=== PATIENT | male | born 1975 | race Caucasian/White ===

== ENCOUNTER 2019-05-21 09:19 | Outpatient (CLI) | payer BC, SELFPAY ==
--- NOTE | 2019-05-21 09:24 | MR_ITS ---
WS: [id number] MRI HEAD WITH CONTRAST TECHNIQUE: Sagittal T1, T2 axial, T2 axial FLAIR, axial susceptibility weighted imaging, axial diffus ion weighted images, and coronal T2 images were obtained. Pre and post-T1 axial and post T1 coronal i mages. ADC and FSPGR images. CLINICAL INFORMATION: NUMBNESS OF FACE;HEADACHE COMPARISON: CTA 12 18,019 FINDINGS: No evidence of restricted diffusion to suggest acute ischemia. Ventricular system and basal cisterns are patent. Mild patchy supratentorial white matter changes in the subcortical and periventricular di stribution nonspecific in a patient this age but can be seen with hypertension, diabetes, and migrain e headaches. Normal posterior fossa. Normal vascular flow voids at the skull base. No extra-axial fluid collection s. Mild mucosal thickening in the ethmoid air cells. Partial opacification left maxillary sinus. Mastoid air cells are well aerated. No significant parenchymal volume loss. Normal optic chiasm and p ituitary infundibulum. Temporal lobes and hippocampal formations are normal in appearance. No abnormal intercranial enhancement. Normal visualized dural venous sinuses. MR/MR head wo/w con [id number] IMPRESSION: 1. No evidence of restricted diffusion to suggest acute ischemia. 2. Mild supratentorial white matter changes nonspecific in a patient this age but can be seen with hypertension, diabetes, and migraine headaches. No signifi cant parenchymal volume loss. 3. No abnormal gadolinium enhancement. 4. Left maxillary sinusitis. Mastoid air cells are well aerated.
== END 2019-05-21 09:20 | disposition home or self-care (01) ==
LOC: RADSHAW 09:22
PROVIDERS: Family Provider Family Medicine; PCP Family Medicine; Visit Provider Family Medicine
DX: J32.0 Chronic maxillary sinusitis (principal); R20.0 Anesthesia of skin; R51 Headache
CPT/HCPCS: 70553; A9579

== ENCOUNTER 2019-11-02 22:25 | Observation (INO) | payer BC, SELFPAY ==
[2019-11-02 22:57] VITALS: BP 142/89; PULSE 77; RESP 18; TEMP 37.3; O2SAT 96; BMI 31.8
[2019-11-03] VITALS (20 sets, daily range): BP systolic 97–151; BP diastolic 62–99; PULSE 66–101; RESP 10–21; TEMP 36.1–36.8; O2SAT 94–100
--- NOTE | 2019-11-03 | SCC_ITS ---
Procedure Done: Cystoscopy, right retrograde ureteropyelogram 43.3 seconds of fluoroscopic guidance, for a cumulative dose of 12.71 mGy, was provided to Dr. Nava by the radiology department. C-arm images of the abdomen were saved for the patient's permanent record. MTDD
[2019-11-03 00:34] LABS: Basophils # 0.1 10^3/uL (0.0-0.1); Basophils % 0.7 %; Eosinophils % 0.1 %; Hematocrit 46.2 % (42.0-52.0); Hemoglobin 15.9 g/dL (11.7-16.6); Lymphocytes # 1.1 10^3/uL (0.8-4.8); Mean Corpuscular HGB Conc 34.4 g/dL (30.0-36.0); Mean Corpuscular Hemoglobin 30.7 pg (28.0-34.0); Mean Corpuscular Volume 89.2 fL (80-94); Monocytes # 0.9 10^3/uL (0.2-0.9); Monocytes % 7.7 %; Neutrophils # 9.8 10^3/uL (1.8-7.7); Neutrophils % 82.2 %; Nucleated Red Blood Cells % 0 %; Platelet Count 225 10^3/cmm (130-400); Red Blood Count 5.18 10^6/uL (4.1-5.3); Red Cell Distribution Width 12.3 % (12.1-15.1); White Blood Count 11.9 10^3/uL (4.0-10.0)
--- NOTE | 2019-11-03 00:38 | CTR_ITS ---
PROCEDURE INFORMATION: Exam: CT Abdomen And Pelvis Without Contrast Exam date and time: 11/03/2019 12:47 AM Age: 44 years old Clinical indication: Abdominal pain; Right; Patient HX: C/O intermittent R flank pain x 2 days - HX of stones TECHNIQUE: Imaging protocol: Computed tomography of the abdomen and pelvis without contrast. Radiation optimization: All CT scans at this facility use at least one of these dose optimization techniques: automated exposure control; mA and/or kV adjustment per patient size (includes targeted exams where dose is matched to clinical indication); or iterative reconstruction. COMPARISON: No relevant prior studies available. RADIATION DOSE METRICS: Total DLP (mGy-cm): 1886.54 FINDINGS: Limitations: Examinations performed without intravenous contrast have limited ability to detect many conditions. Lungs: Visualized portions of the lung bases are clear. Liver: Diffuse fatty infiltration of the liver. Gallbladder and bile ducts: Unremarkable. Pancreas: Unremarkable. Spleen: Unremarkable. Adrenals: Unremarkable. Kidneys and ureters: There is a 0.8 cm stone in the right lower ureter (series 2, image 158). Moderate right hydronephrosis. Moderate inflammatory change of the right perinephric fat. The left kidney is unremarkable. Stomach and bowel: No bowel obstruction identified. No diverticulitis identified. Appendix: A normal-appearing appendix is seen in the right lower quadrant. Intraperitoneal space: No free intraperitoneal air identified. No free intraperitoneal fluid identified. Vasculature: No abdominal aortic aneurysm. Lymph nodes: Unremarkable. Bladder: Unremarkable as visualized. Reproductive: Unremarkable as visualized. Bones/joints: No emergent findings identified. Soft tissues: Unremarkable. CT/CT kidney stone [id number] IMPRESSION: 1. There is a 0.8 cm stone in the right lower ureter. Moderate right hydronephrosis. 2. Fatty liver. Radiation Dose CTDIVOL = (mGy): DLP = 1886.54 (mGy-cm)
[2019-11-03] MEDS: HYDROmorphone 1 mg/mL INJ 1 mL IVP ×3 (00:51→04:12)
[2019-11-03] MEDS: ondansetron 2 mg/ML SDV 2 mL 4 MG IVP ×2 (00:52→02:05)
[2019-11-03 00:53] LABS: Alanine Aminotransferase 39 U/L (0-41); Albumin Level 4.7 g/dL (3.5-5.2); Alkaline Phosphatase 60 IU/L (40-130); Anion Gap 17.1 (5-19); Aspartate Amino Transferase 28 U/L (0-40); Blood Urea Nitrogen 14 mg/dL (6-20); C Reactive Protein 4.6 mg/L (0.0-4.9); Calcium 9.6 mg/dL (8.5-10.5); Carbon Dioxide 27 mmol/L (22-29); Chloride 99 mmol/L (98-107); Globulin 2.9 g/dL (1.3-4.6); Glomerular Filtration Rate 50.8 mL/min (90-130); Glucose 129 mg/dL (65-115); Lipase 36 U/L (13-60); Osmolality Calculated 286 mOsm/kg (285-295); Potassium 4.1 mmol/L (3.5-5.1); Sodium 139 mmol/L (136-145); Total Bilirubin 0.5 mg/dL (0.15-1.2); Total Protein 7.6 g/dL (6.6-8.7)
[2019-11-03] MEDS: sodium chloride 0.9% 1,000 ML 999 ML IV (00:55)
[2019-11-03 02:15] LABS: Add Urine Microscopic? YES; Bilirubin Urine 1+ (NEGATIVE); Blood Urine 3+ (Negative); Glucose Urine UA Norm (Normal); Ketones Urine Negative (Negative); Leukocyte Esterase Urine Negative (Negative); Nitrate Urine Negative (Negative); Protein Urine Neg (Negative); Urine Appearance Clear (CLEAR); Urine Color Yellow (Yellow); Urobilinogen Urine Norm (Negative); pH Urine 5 (5-7)
[2019-11-03 02:17] LABS: Bacteria Urine TRACE; Mucus Urine 1+; RBC Urine 25-40 /hpf (0-2); Squamous Epithelial Cell Urine 0-4 (0-5); WBC Urine 0-4 /hpf (0-5)
[2019-11-03 02:18] LABS: Add Urine Culture? Yes; Calcium Oxalate Crystals Urine 0-4 /hpf
[2019-11-03] MEDS: ketorolac 30 mg/mL INJ IVP (03:25)
[2019-11-03] MEDS: metoclopramide 5 mg/mL SDV 2 mL 10 MG IVP (03:35)
--- NOTE | 2019-11-03 03:43 | W.ED.GENADLT ---
HPI - General Adult General: Chief complaint: General Medical Stated complaint: back pain Time Seen by Provider: 11/03/19 00:15 History of Present Illness: HPI narrative: 44-year-old male with a history of kidney stones presents with right flank pain since around noon. He has vomited several times per he had Percocet to take at home for renal stone pain, but vomited it up as well. No fever. No diarrhea. Onset (ago): hour(s) Location: right (Flank) Radiation: back, abdomen and flank Severity: severe Quality: stabbing and aching Pain Consistency: intermittent Relieving factors: none Associated symptoms: Reports nausea and vomiting; Deny chest pain, dyspnea, headache(s) or rash Review of Systems Const: Denies: fever(s) or chills Eyes: Denies: change in vision or blurry vision ENMT: Denies: odynophagia or sinus pain Card: Reports: edema; Denies: chest pain, irregular heart rhythm or swelling of feet/ankles Resp: Reports: wheezing; Denies: dyspnea, productive cough or non-productive cough GI: Reports: abdominal pain, nausea and vomiting; Denies: hematochezia or melena : Reports: difficulty urinating, dysuria and urinary frequency; Denies: urinary urgency or hematuria Musc: Reports: back pain; Denies: neck pain Skin/Breast: Denies: rash, pruritus or erythema Neuro: Denies: headache(s), dizziness or vertigo Psych: Denies: anxiety PFSH ED PFSH: Social History Smoking and tobacco status: never smoked Physical Exam Const: GENERAL APPEARANCE: well developed ORIENTATION/CONSCIOUSNESS: Yes oriented to person, Yes oriented to place and Yes oriented to time HENMT: COMMON NORMALS: normocephalic, external ears normal and Normal external nose present HEAD & SCALP: normocephalic FACE & SINUS: normal facial exam NOSE: Normal external nose present and No nasal discharge present EXTERNAL EAR: Yes external ears normal MOUTH: tongue normal Eye: COMMON NORMALS: Equal, round and reactive pupils present, EOMs intact bilaterally and conjunctivae normal EYELID: eyelids normal CONJUNCTIVA: Yes conjunctivae normal PUPIL: Yes Equal, round and reactive pupils present Neck/C-Spine: GENERAL: No tracheal deviation CERVICAL SPINE: Yes normal cervical lordosis and No Cervical spine tenderness Chest: COMMONS NORMALS: normal inspection of the chest CHEST: No tenderness Resp: COMMON NORMALS: clear to auscultation bilaterally EFFORT & INSPECTION: No tachypneic, No respiratory distress, No retractions, No uses accessory muscles and No tracheal deviation AUSCULTATION: clear to auscultation bilaterally, no rhonchi, no wheezes and lung sounds not diminished Cardio: COMMON NORMALS: regular rate and regular rhythm RATE: regular rate RHYTHM: regular rhythm HEART SOUNDS: no murmurs PERIPHERAL PULSES: radial pulses present GI: INSPECTION: No abdominal distension AUSCULTATION: No Hyperactive bowel sounds present and No Hypoactive bowel sounds present PALPATION: No Guarding due to palpation present (GI) and No Rigid due to palpation PERCUSSION: no dullness to percussion and no tympanic to percussion Neuro: SENSORIUM/ORIENTATION: Yes oriented to person, Yes oriented to place and Yes oriented to time Psych: COMMON NORMALS: mental status grossly normal Skin: COMMON NORMALS: no rashes or lesions noted GENERAL SKIN EXAM: no rashes or lesions noted Course Vital Signs: Vital signs: Vital Signs Temperature 98.3 F 11/03/19 04:00 Pulse Rate 79 11/03/19 04:00 Respiratory Rate 16 11/03/19 04:00 Blood Pressure 122/77 11/03/19 04:00 Pulse Oximetry 96 11/03/19 04:00 MDM - General Adult MDM Narrative: Medical decision making narrative: 44-year-old male with intractable pain and vomiting. He has an 8 mm stone in the distal ureter. His white blood cell count is 12. His creatinine is 1.5. He is received some IV fluid. He still having pain and nausea despite 8 of Zofran and 2 mg of Dilaudid. He threw up his pain medication at home. Spoke with the urologist, and will observe. Lab Data: Labs: Lab Results 11/03/19 11/03/19 11/03/19 Range/Units 00:19 00:19 01:42 WBC 11.9 H (4.0-10.0) 10^3/ uL RBC 5.18 (4.1-5.3) 10^6/u L Hgb 15.9 (11.7-16.6) g/dL Hct 46.2 (42.0-52.0) % MCV 89.2 (80-94) fL MCH 30.7 (28.0-34.0) pg MCHC 34.4 (30.0-36.0) g/dL RDW 12.3 (12.1-15.1) % Plt Count 225 (130-400) 10^3/c mm MPV 10.0 (7.4-10.4) fL Neut % (Auto) 82.2 % Lymph % (Auto) 9.0 % [place] % (Auto) 7.7 % Eos % (Auto) 0.1 % Baso % (Auto) 0.7 % Neut # (Auto) 9.8 H (1.8-7.7) 10^3/u L Lymph # (Auto) 1.1 (0.8-4.8) 10^3/u L [place] # (Auto) 0.9 (0.2-0.9) 10^3/u L Eos # (Auto) 0.0 (0.0-0.8) 10^3/u L Baso # (Auto) 0.1 (0.0-0.1) 10^3/u L Nucleated RBC % (a uto) 0 % Nucleated RBCs # 0.0 /100WBC Sodium 139 (136-145) mmol/L Potassium 4.1 (3.5-5.1) mmol/L Chloride 99 (98-107) mmol/L Carbon Dioxide 27 (22-29) mmol/L Anion Gap 17.1 (5-19) BUN 14 (6-20) mg/dL Creatinine 1.5 H (0.7-1.2) mg/dL GFR Calculation 50.8 L (90-130) mL/min Glucose 129 H (65-115) mg/dL Calculated Osmolal ity 286 (285-295) mOsm/k g Calcium 9.6 (8.5-10.5) mg/dL Total Bilirubin 0.5 (0.15-1.2) mg/dL AST 28 (0-40) U/L ALT 39 (0-41) U/L Alkaline Phosphata se 60 (40-130) IU/L C-Reactive Protein 4.6 (0.0-4.9) mg/L Total Protein 7.6 (6.6-8.7) g/dL Albumin 4.7 (3.5-5.2) g/dL Globulin 2.9 (1.3-4.6) g/dL Lipase 36 (13-60) U/L Urine Color Yellow (Yellow) Urine Appearance Clear (CLEAR) Urine pH 5 (5-7) Ur Specific [place] 1.020 (1.005-1.030) Urine Protein Neg (Negative) Urine Glucose (UA) Norm (Normal) Urine Ketones Negative (Negative) Urine Blood 3+ H (Negative) Urine Nitrate Negative (Negative) Urine Bilirubin 1+ H (NEGATIVE) Urine Urobilinogen Norm (Negative) mg/dL Ur Leukocyte [place] ase Negative (Negative) Urine RBC 25-40 H (0-2) /hpf Urine WBC 0-4 H (0-5) /hpf Ur Squamous Epith Cells 0-4 H (0-5) Calcium Oxalate Cr ystal 0-4 H /hpf Urine Bacteria Trace (NONE) Urine Mucus 1+ Discharge Plan Discharge Admit Provider: Christopher Nava Discharge Date/Time: 11/03/19 03:47 Coding Level of Care Code ED Video Surveillance Technician for Jennifer Dickens
[2019-11-03] MEDS: sodium chloride 0.9% 1,000 ML 125 ML IV (04:11)
[2019-11-03 04:55] LABS: Basophils # 0.1 10^3/uL (0.0-0.1); Basophils % 0.5 %; Hematocrit 44.7 % (42.0-52.0); Hemoglobin 15.3 g/dL (11.7-16.6); Lymphocytes # 1.3 10^3/uL (0.8-4.8); Mean Corpuscular HGB Conc 34.2 g/dL (30.0-36.0); Mean Corpuscular Hemoglobin 30.7 pg (28.0-34.0); Mean Corpuscular Volume 89.6 fL (80-94); Mean Platelet Volume 10.3 fL (7.4-10.4); Monocytes # 1.3 10^3/uL (0.2-0.9); Monocytes % 10.1 %; Neutrophils % 79.1 %; Nucleated Red Blood Cells % 0 %; Platelet Count 222 10^3/cmm (130-400); Red Blood Count 4.99 10^6/uL (4.1-5.3); Red Cell Distribution Width 12.4 % (12.1-15.1); White Blood Count 12.6 10^3/uL (4.0-10.0)
--- NOTE | 2019-11-03 05:20 | PM.SDS ---
Short Stay Summary Providers Date of Admit/Discharge: 11/03/19 Attending Provider: Christopher Nava MD Primary Care Provider: Dallas Interiano MD Chief Complaint: Large obstructing RIGHT distal ureteral stone HPI History of Present Illness Reji Infante is a 44 year old male with about 3 weeks of intermittent RIGHT flank pain c/w previous episodes of stone pain. NO fever or chills or symptoms of UTI. ++ N/V. Last stone treatment was in 2008 via ESWL Presented to ED last night with severe symptoms and despite aggressive parenteral narcotic usage he could not adequately be controlled. CT: 8+mm Right distal stone with severe hydronephrosis consistent with time frame he described. UA: no infection CBC: normal WBC CMP: Creatinine increased to 1.5 up from baseline of 1.0. Normal LFTs. Admitted to [facility] – [place], [place] for symptomatic control and definitive therapy based on failure on outpatient basis extending over 3 weeks. Reviewed options with him: 1. Treat today with endoscopy/stent and hope to discharge 2. Treat with ESWL or endoscopy tomorrow. 3. Continue conservative management with hope of spontaneous passage. After good discussion he elected endoscopy today. Informed consent obtained. Review of Systems Const: Denies: fever(s) or chills Eyes: Denies: change in vision or blurry vision ENMT: Denies: throat pain or mouth pain Card: Denies: chest pain or palpitations Resp: Denies: dyspnea, productive cough or non-productive cough GI: Reports: abdominal pain, nausea and vomiting : Reports: flank pain; Denies: difficulty urinating Musc: Denies: joint redness or joint warmth Skin/Breast: Denies: rash or erythema Neuro: Denies: Slurred speech present or seizure-like activity Psych: Denies: hopelessness or memory loss Endo: Denies: polydipsia or hot flashes Chin/Lymph: Reports: easy bruising and easy bleeding All/Imm: Denies: urticaria or throat swelling Home Meds/Allergies Home Medications and Allergies Home Medications Medication Instructions Recorded Confirmed Type Percocet 11/02/19 History meloxicam 11/02/19 History Allergies Allergy/AdvReac Type Severity Reaction Status Date / Time No Known Allergies Allergy Verified 11/02/19 23:03 PFSH Acute PFSH: Medical History Urolithiasis Surgical History (Updated 11/03/19 @ 08:43 by Christopher Nava MD) History of lithotripsy Social History Smoking and tobacco status: never smoked Vitals/I&O/Wt Last Vital Signs Temp 98.3 F 11/03/19 04:00 Pulse 79 11/03/19 04:00 Resp 16 11/03/19 04:12 BP 122/77 11/03/19 04:00 Pulse Ox 96 11/03/19 04:12 11/02/19 11/02/19 11/03/19 14:59 22:59 06:59 Intake Total 1000 / 1000 Balance 1000 / 1000 Weight last 48 hrs Weight 235 lb Physical Exam Const: COMMON NORMALS: no acute distress, alert and well nourished GENERAL APPEARANCE: well kempt and well developed ORIENTATION/CONSCIOUSNESS: not confused HENMT: COMMON NORMALS: normocephalic and atraumatic HEAD & SCALP: normocephalic and atraumatic Eye: COMMON NORMALS: conjunctivae normal and no scleral icterus CONJUNCTIVA: Yes conjunctivae normal Neck/C-Spine: COMMON NORMALS: full ROM GENERAL: Yes normal visual inspection Lymph: LYMPHATIC: no lymphadenopathy noted and no lymphedema noted Resp: COMMON NORMALS: normal respiratory effort and clear to auscultation bilaterally EFFORT & INSPECTION: No labored and No Actively coughing AUSCULTATION: clear to auscultation bilaterally Cardio: COMMON NORMALS: regular rate, regular rhythm and No murmurs present (Cardio) RATE: regular rate RHYTHM: regular rhythm BRUITS: no carotid bruits Extremity: COMMON NORMALS: no clubbing, cyanosis or edema Neuro: COMMON NORMALS: no focal motor deficits SENSORIUM/ORIENTATION: Yes alert Psych: COMMON NORMALS: mental status grossly normal APPEARANCE: Yes grossly normal and Yes well kempt ATTITUDE: Yes calm and Yes engaged Skin: COMMON NORMALS: no rashes or lesions noted and no jaundice GENERAL SKIN EXAM: no rashes or lesions noted Hospital Course Admission Diagnoses: 1. Large right distal ureteral stone with high-grade obstruction and refractory symptoms 2. Right hydronephrosis and renal colic Hospital Course: He was admitted through the emergency department and was aggressively managed from a pain perspective. He was offered anterior tension with endoscopy or continued conservative management and possibly delayed ESWL. After detailed discussion he elected to proceed with endoscopy on the morning of his admission. He underwent cystoscopy, right retrograde ureteropyelogram, right ureteroscopy, laser, stent which was left indwelling at the completion of the procedure. No string. Did well. All stone fragments were removed. After appropriate recovery he was discharged home in stable condition with plans for KUB and possible cystoscopy, stent removal in approximately 1 week. SSS Data Data Completed and Pending: Completed Studies During Hospitalization Category Date Time Status CT kidney stone [id number] Urgent Cat Scan 11/03/19 00:38 Completed Pending at discharge Category Date Time Status Comprehensive Met abolic Panel AM LA BS Lab 11/03/19 04:08 Received Urine Culture Sta t Lab 11/03/19 01:42 Received Diagnoses at Discharge Discharge Diagnosis (1) Right distal ureteral calculus: Status: Acute (2) Renal colic on right side: Status: Acute (3) Hydronephrosis of right kidney: Status: Acute (4) Urolithiasis: Status: Acute Qualifiers: Urinary calculus location: kidney and ureter Qualified Code(s): N20.2 - Calculus of kidney with calculus of ureter Discharge Plan Discharge Patient Disposition: Home, Self-Care Condition: Stable Prescriptions: Continued meloxicam RF: 0 Percocet RF: 0 Discharge Orders: Discharge Order (Routine); Ordered 11/03/19 Ordered By: Christopher Nava Referrals: Christopher Nava MD [Physician] - 1 week Discharge Diet: Usual diet Discharge Activity: Increase activity as tolerated Activity Restrictions/Additional Instructions: 1. The stone was well fragmented and all the fragments removed. 2. I left a stent indwelling which will create urgency, frequency, burning with urination at times, RIGHT flank pain with voiding. These are normal symptoms and will go away when the stent is removed. The stent was left indwelling because of the inflammatory change where the stone had been located in the ureter. 3. We will plan on removing the stent in my office in about a week. Arrangements will be made early next week for that visit. Attestations Medical Necessity Statement*: uncontrolled pain from large Right ureteral stone causing obstruction and not likey to pass. Time Spent in Patient Care*: greater than 30 min Quality Metrics Clinical Quality Measures: During this hospital stay, did patient experience: None Coding Level of Care Code Acute Dock Supervisor for Chg Fwd Exam Comprehensive Diagnoses Right distal ureteral calculus N20.1 Renal colic on right side N23 Hydronephrosis of right kidney N13.30 Urolithiasis N20.2 Urinary calculus location: kidney and ureter
[2019-11-03 05:22] LABS: Alanine Aminotransferase 36 U/L (0-41); Albumin Level 4.6 g/dL (3.5-5.2); Alkaline Phosphatase 57 IU/L (40-130); Anion Gap 17.1 (5-19); Aspartate Amino Transferase 28 U/L (0-40); Blood Urea Nitrogen 15 mg/dL (6-20); Calcium 9.2 mg/dL (8.5-10.5); Carbon Dioxide 25 mmol/L (22-29); Chloride 102 mmol/L (98-107); Globulin 2.7 g/dL (1.3-4.6); Glomerular Filtration Rate 50.8 mL/min (90-130); Glucose 124 mg/dL (65-115); Osmolality Calculated 288 mOsm/kg (285-295); Potassium 4.1 mmol/L (3.5-5.1); Sodium 140 mmol/L (136-145); Total Bilirubin 0.6 mg/dL (0.15-1.2); Total Protein 7.3 g/dL (6.6-8.7)
--- NOTE | 2019-11-03 06:50 | ANES.PREANE2 ---
Pre-Anesthetic Assessment Pre-Anesthetic Assessment: Height/Weight: Height 1.83 m Weight 106.594 kg Temp Pulse Resp BP Pulse Ox 98.3 F 79 16 122/77 96 11/03/19 04:00 11/03/19 04:00 11/03/19 04:12 11/03/19 04:00 11/03/19 04:12 Proposed Procedure: Operation Date: 11/03/19 07:50 Proposed Procedures p Cystoscopy Right Retrograde ureteroscopy laser and stent(Right) - Christopher Nava MD Last intake: Intake Last Liquid Date 11/03/19 Last Liquid Time 12:00 Last Solid Date 11/02/19 Last Solid Time 09:00 Social: Social History: No alcohol and No tobacco Exam: Pre-Anes Outpt Exam: alert, oriented x 3, clear to auscultation bilaterally and regular rate & rhythm Airway: Submandibular: WNL Cervical ROM: WNL MP: 2 Dentition: Other (teeth ok) History/ROS: No significant history except as noted Pulmonary: Pulmonary: None reported CV/HEM: CV/HEM: HTN : Comments: stones Hepatic: Hepatic: None reported GI: GI: GERD (occ) Metabolic: Metabolic: None reported Musc/skel: Musc/skel: OA/DJD Neuropsych: Neuropsych: None reported Anesthetic Plan: ASA status: 2E Anesthesia: Anesthesia Evaluation and General Risk of > 500 ml blood loss (7ml/kg in children): No Meds/Allergies Current Medications: Current Medications Generic Name Dose Route Start Last Admin Trade Name Freq PRN Reason Stop Dose Admin Hydromorphone HCl 1 mg 11/03/19 03:55 11/03/19 04:12 Dilaudid Inj IVP 1 mg Q2H PRN Administration pain Sodium Chloride 1,000 mls @ 125 m ls/hr 11/03/19 03:55 11/03/19 04:11 Sodium Chloride 0.9% IV 125 mls/hr .Q8H AROLDO Administration PFSH Anesthesia PFSH: Medical History Urolithiasis Social History Smoking and tobacco status: never smoked Data Anesthesia CBC & Chem 7: 11/03/19 04:08 11/03/19 04:08 Other Labs: Laboratory Results - last 48 hr 11/03/19 11/03/19 11/03/19 00:19 00:19 01:42 WBC 11.9 H RBC 5.18 Hgb 15.9 Hct 46.2 MCV 89.2 MCH 30.7 MCHC 34.4 RDW 12.3 Plt Count 225 MPV 10.0 Neut % (Auto) 82.2 Lymph % (Auto) 9.0 [place] % (Auto) 7.7 Eos % (Auto) 0.1 Baso % (Auto) 0.7 Neut # (Auto) 9.8 H Lymph # (Auto) 1.1 [place] # (Auto) 0.9 Eos # (Auto) 0.0 Baso # (Auto) 0.1 Nucleated RBC % (auto) 0 Nucleated RBCs # 0.0 Sodium 139 Potassium 4.1 Chloride 99 Carbon Dioxide 27 Anion Gap 17.1 BUN 14 Creatinine 1.5 H GFR Calculation 50.8 L Glucose 129 H Calculated Osmolality 286 Calcium 9.6 Total Bilirubin 0.5 AST 28 ALT 39 Alkaline Phosphatase 60 C-Reactive Protein 4.6 Total Protein 7.6 Albumin 4.7 Globulin 2.9 Lipase 36 Urine Color Yellow Urine Appearance Clear Urine pH 5 Ur Specific [place] 1.020 Urine Protein Neg Urine Glucose (UA) Norm Urine Ketones Negative Urine Blood 3+ H Urine Nitrate Negative Urine Bilirubin 1+ H Urine Urobilinogen Norm Ur Leukocyte Esterase Negative Urine RBC 25-40 H Urine WBC 0-4 H Ur Squamous Epith Cells 0-4 H Calcium Oxalate Crystal 0-4 H Urine Bacteria Trace Urine Mucus 1+ 11/03/19 11/03/19 04:08 04:08 WBC 12.6 H RBC 4.99 Hgb 15.3 Hct 44.7 MCV 89.6 MCH 30.7 MCHC 34.2 RDW 12.4 Plt Count 222 MPV 10.3 Neut % (Auto) 79.1 Lymph % (Auto) 10.0 [place] % (Auto) 10.1 Eos % (Auto) 0.0 Baso % (Auto) 0.5 Neut # (Auto) 10.0 H Lymph # (Auto) 1.3 [place] # (Auto) 1.3 H Eos # (Auto) 0.0 Baso # (Auto) 0.1 Nucleated RBC % (auto) 0 Nucleated RBCs # 0.0 Sodium 140 Potassium 4.1 Chloride 102 Carbon Dioxide 25 Anion Gap 17.1 BUN 15 Creatinine 1.5 H GFR Calculation 50.8 L Glucose 124 H Calculated Osmolality 288 Calcium 9.2 Total Bilirubin 0.6 AST 28 ALT 36 Alkaline Phosphatase 57 C-Reactive Protein Total Protein 7.3 Albumin 4.6 Globulin 2.7 Lipase Urine Color Urine Appearance Urine pH Ur Specific [place] Urine Protein Urine Glucose (UA) Urine Ketones Urine Blood Urine Nitrate Urine Bilirubin Urine Urobilinogen Ur Leukocyte Esterase Urine RBC Urine WBC Ur Squamous Epith Cells Calcium Oxalate Crystal Urine Bacteria Urine Mucus Cardiac Studies: No Data to Display
--- NOTE | 2019-11-03 07:16 | PM.OP ---
Operative Report Date of procedure: November 03, 2019 Pre-op Diagnosis: Refractory right renal colic secondary to large distal ureteral stone Post-op diagnosis: same Procedure Done: Cystoscopy, right retrograde ureteropyelogram Right ureteroscopy laser lithotripsy stent Pathology: Stone fragments Surgeon: Elijah Anesthesia: General Estimated blood loss: Minimal Urine output: Not measured Complications: None Condition: stable Disposition: PACU Brief History: Reji is a very pleasant 44-year-old white male who I have seen in the past for urolithiasis. He had ESWL in 2008 and is passed probably 3 stones since that time. Was lost to follow-up. About 3 weeks ago he started developing intermittent right renal colicky symptoms that remind him of stone passage. He was hoping that he would spontaneously pass a stone but presented to the emergency department last night with refractory pain nausea and vomiting that could not be adequately controlled in the emergency department and therefore he was admitted for further evaluation and treatment. Work-up revealed an 8+ millimeters stone in the right distal ureter with high-grade obstruction. It was felt that the stone would not likely pass and for that reason he was offered the option for treatment and elected to proceed with endoscopy. Alternatives were discussed. Procedure: After urgent evaluation examination and obtaining of informed consent he was taken to the operating suite on 11/03/2019 where general anesthesia was administered without difficulty after appropriate timeout was performed, SCDs confirmed to be functioning, preoperative antibiotics administered, beta-mallory protocol confirmed. Prepped and draped in usual sterile fashion in dorsolithotomy position pain careful attention to avoiding pressure points. 21 Dominican cystoscope with 30 degree lens was introduced to the urethral meatus and advanced into the bladder under videoscopy. Bladder was systematically examined and found to be within normal limits. No stone. An 8 Dominican cone-tipped catheter was intubated to the right ureteral orifice for right retrograde ureteropyelogram which demonstrated normal ureter distal to the stone and a filling defect consistent with stone seen on CT scan. The ureter proximal to the stone was dilated. Findings were consistent with previous imaging. A flexible tip guidewire was then advanced up the right ureter to the stone but would not easily pass the stone and therefore an open-ended ureteral catheter was passed over the guidewire which helped and bypassing the stone with curling in the area of the upper pole calyx. The distal ureter was then dilated with a 15 Dominican 4 cm balloon with no waist. A second guidewire was passed and the first wire was secured to the drapes as a safety wire. A 24 cm ureteral access sheath was advanced over the working wire up to just below the level of the stone but did not stay and well and therefore it was removed. The offset semirigid ureteroscope was advanced up the ureter to the level of the stone which was then fragmented with a 365 ?m homing laser fiber into smaller pieces were then removed with a parachute basket without difficulty. Final inspection revealed no additional stone fragments. Because of the inflammatory state of the ureter where the stone was located it was decided to leave a stent indwelling. A 6 Dominican by 30 cm double-pigtail stent was advanced over the guidewire through the cystoscope into appropriate position as confirmed via fluoroscopy and cystoscopy. Bladder drained and procedure completed. Tolerated procedure well without complications and was awakened in the operating room and returned to recovery room in stable condition. PLANS: 1. Should be able to be discharged today and follow-up in 1 week for stent removal.
[2019-11-03] MEDS: sodium chloride 0.9% 1,000 ML 30 ML IV (07:22)
--- NOTE | 2019-11-03 07:31 | SUR.PREOP ---
0700 PT TO OPS AWAKE ALERT DENIES PAIN ONLY NAUSEA OFF AND ON, DR LEVY AT BEDSIDE, SIDE RAILS UP X 2 CALL LIGHT WITHIN REACH, BED LOCKED 0710 IV NS UP AT KVO RATE, TO LT AC SITE PATENT WITH GOOD BLOOD RETURN NOTED.SCDS PLACED ON PT ORDERED
--- NOTE | 2019-11-03 08:03 | SC_ITS ---
WS: [id number] C-ARM RADIOGRAPHS ABDOMEN; 3 IMAGES HISTORY: Cystoscopy, right retrograde ureteropyelogram COMPARISON: 11/03/2019 Intraoperative imaging during RIGHT ureteral stone removal. NC/C-arm [place] for Urology IMPRESSION: Intraoperative imaging during ureteral stone removal.
[2019-11-03] MEDS: iohexol 300 mg/mL 50 mL Btl (OR ONLY) XX (08:04)
--- NOTE | 2019-11-03 08:38 | SUR.PHASEI ---
0816 PT TO PACU SLEEPY WITH GOOD RESP NOTED ORAL AIRWAY IN PLACE VSS
--- NOTE | 2019-11-03 08:54 | SUR.PHASEI ---
PT AWAKE ALERT ON RA PT USING URINAL, NO DISTRESS NOTED VSS.
--- NOTE | 2019-11-03 09:23 | SUR.PHASEI ---
899 PT USED URINAL APPROX 10 ML RED URINE NOTED NO CLOTS , REPORT CALLED TO FLOOR PT DENIES PAIN ONLY URGENCY, PT INFORMED OF STENT PLACED IN OR. 901 PT TO FLOOR PER CART AWAKE ALERT PT AMBULATES TO BED AND TOLERATED WELL , HANDOFF AT BEDSIDE WITH BRUCE PIERCE
--- NOTE | 2019-11-03 10:56 | PC.CHAP ---
Pastoral Care Encounter/Spiritual Assessment Type of Contact [] Declined heritage consultant visit [] Patient/Family/Request visit [] Outpatient visit [] Follow-up visit [] Physician referral [] Code/Alert [X] Routine visit [] Staff referral [] Actively dying [] Patient sleeping [] Family support [] [] Out of room [] Palliative care [] [] Receiving care in room [] Pre-surgical visit [] Trauma [] Long length of stay [] ICU visit [] Other: Relational/Emotional Strength [] Patient feels connected with others/family/visitors/staff [] Distress [] Loneliness/isolation [] Abandonment Spirituality of Patient [] Person of Hayley [] Attends Alevism of their Hayley [] Believes in Prayer [] Reads Bible or Christian materials [] There are Spiritual issues to be addressed Medical Biller/Coder Interventions [] Prayer [] Active listening [] Non-anxious presence [] Spiritual/emotional support [] Crisis/trauma care [] Spiritual counseling [] Bereavement support [] Provided bereavement packet [] Provided Bible/devotional materials [] Provided toy/stuffed animal, coloring book to patient or family member [] Provided Communion [] Anointing/[place] [] Salvation [] Completed spiritual assessment [] Other: Impact on Illness or Injury [] Angry [] Fearful [] Anxious [] Often cries [] Exhaustion [] Unable to work [] Unable to attend mu-ism [] Unable to walk/stand [] Unable to read [] Unable to drive [] Unable to eat/drink [] Unable to sleep [] Unable to be with family [] Patient intubated [] Other: Summary: I sensed that patient didn't really need a heritage consultant visit. We chatted briefly about his admission reason, and he was preparing to be discharged today. He seemed in good spirits. Time spent with patient: <5 mins
[2019-11-10 03:45] LABS: Stone Source URETER
== END 2019-11-03 11:27 | disposition home or self-care (01) ==
LOC: ER 11-03 00:15 → MEDSURG 11-03 03:32
PROVIDERS: Emergency Medicine; Admitting Provider Urology; PCP Family Medicine; Visit Provider Urology
PROC: 0TJB8ZZ Inspection of Bladder, Via Natural or Artificial Opening Endoscopic (ICD-10-PCS; CPT 52000; principal; 2019-11-03 07:30)
PROC: (CPT 74420; 2019-11-03 07:30)
PROC: (CPT 52356; 2019-11-03 07:30)
PROC: (CPT 50605; 2019-11-03 07:30)
PROC: 0TJ98ZZ Inspection of Ureter, Via Natural or Artificial Opening Endoscopic (ICD-10-PCS; CPT 52351; 2019-11-03 07:30)
DX: N20.2 Calculus of kidney with calculus of ureter (principal); I10 Essential (primary) hypertension; K21.9 Gastro-esophageal reflux disease without esophagitis; M19.90 Unspecified osteoarthritis, unspecified site
CPT/HCPCS: 52356; 12345; 36415; 74176; 76000; 80053; 81001; 82365; 83690; 85025; 86140; 87086; 88300; 96361; 96374; 96375; 96376; 99283; 99285; C1725; C2625; G0378; J1100; J1170; J1885; J2001; J2405; J2704; J2765; J3010; J7030

== ENCOUNTER 2019-11-13 07:52 | Outpatient (CLI) | payer BC, SELFPAY ==
--- NOTE | 2019-11-13 08:03 | XRR_ITS ---
PROCEDURE INFORMATION: Exam: XR Abdomen, 1 View Exam date and time: 11/13/2019 8:14 AM Age: 44 years old Clinical indication: Condition or disease; Kidney or ureter condition; Calculus (stone) in ureter; Prior surgery; Surgery date: <1 month; Surgery type: Stent placed right kidney; Patient HX: Follow up. Previous CT renal 11/03/19 prior to stent; Additional info: Ureteral calculus TECHNIQUE: Imaging protocol: XR of the abdomen. Views: Frontal supine view of the abdomen. 1 View. COMPARISON: CT kidney stone [id number] 11/03/2019 12:53 AM FINDINGS: Gastrointestinal tract: Normal. No bowel dilation. Organs: There is an indwelling right-sided nephroureteral stent. No radiopaque calculi are visualized. Bones/joints: Unremarkable. XR/XR KUB [id number] IMPRESSION: No acute abnormality. Right nephroureteral stent.
== END 2019-11-13 07:53 | disposition home or self-care (01) ==
LOC: RAD 07:55
PROVIDERS: PCP Family Medicine; Visit Provider Urology
DX: N20.1 Calculus of ureter (principal); Z96.0 Presence of urogenital implants
CPT/HCPCS: 74018; 81001

== ENCOUNTER 2020-05-06 14:21 | Outpatient (CLI) | payer BC, SELFPAY ==
--- NOTE | 2020-05-06 14:25 | MR_ITS ---
WS: [id number] MRI CERVICAL SPINE NONCONTRAST TECHNIQUE: Sagittal T1, T2 and STIR imaging. Axial T2, gradient, and fiesta imaging. CLINICAL INFORMATION: NEURALGIA COMPARISON: CT 12 FINDINGS: Straightening of the normal cervical lordosis. No high-grade central canal narrowing. Cord signal is normal. C2-C3: Normal. C3-C4: Mild disc bulge with endplate ridging. Mild facet arthropathy. Mild left and no significant ri ght foraminal narrowing. Spinal canal is patent. C4-C5: Disc osteophyte complex with endplate ridging. Mild left greater than right bony foraminal edwige rowing. Mild facet arthropathy. Spinal canal is patent. C5-C6: Disc osteophyte complex with endplate ridging. Small central protrusion. Slight contact of the cervical cord with mild central canal stenosis. Moderate left and mild right bony foraminal narrowin g. Mild facet arthropathy. C6-C7: Mild disc osteophytic ridging. Mild left greater than right bony foraminal narrowing. Spinal c anal is patent. C7-T1: Mild left and no significant right foraminal narrowing. Spinal canal is patent. Visualized brain stem structures: Normal. Prevertebral soft tissues: Normal. MR/MR cervical spin wo con* [id number] IMPRESSION: 1. Straightening of the normal cervical lordosis. Cord signal is normal. 2. Disc osteophyte complex worse at C5-C6 with small central protrusion and sl ight contact of the cervical cord. Mild central canal stenosis at this level. M oderate left bony foraminal narrowing at this level. 3. Otherwise mild bony foraminal narrowing at left C3-C4, left C4-C5, right C5 -C6, and left C6-C7.
== END 2020-05-06 14:22 | disposition home or self-care (01) ==
LOC: RADWPI 14:23
PROVIDERS: PCP Family Medicine; Visit Provider Family Medicine
DX: M79.2 Neuralgia and neuritis, unspecified (principal); M25.78 Osteophyte, vertebrae
CPT/HCPCS: 72141

== ENCOUNTER → 2020-06-02 10:46 | Outpatient (BNVA) | payer BC, SELFPAY | PROVIDERS: PCP Family Medicine; Referring Provider Orthopaedic Surgery; Visit Provider Anesthesiology Pain Medicine | DX: M47.22 Other spondylosis with radiculopathy, cervical region (principal); M50.90 Cervical disc disorder, unspecified, unspecified cervical region; M47.812 Spondylosis without myelopathy or radiculopathy, cervical region; M62.838 Other muscle spasm | CPT/HCPCS: 99205 ==

== ENCOUNTER → 2020-06-19 13:07 | Outpatient (BNVA) | payer BC, SELFPAY | PROVIDERS: PCP Family Medicine; Visit Provider Anesthesiology Pain Medicine | DX: M50.90 Cervical disc disorder, unspecified, unspecified cervical region (principal) | CPT/HCPCS: 62321; J1100 ==

== ENCOUNTER → 2020-07-02 12:58 | Outpatient (BNVA) | payer BC, SELFPAY | PROVIDERS: PCP Family Medicine; Visit Provider Anesthesiology Pain Medicine | DX: G89.29 Other chronic pain (principal); M62.838 Other muscle spasm; M47.22 Other spondylosis with radiculopathy, cervical region; M50.90 Cervical disc disorder, unspecified, unspecified cervical region; M47.812 Spondylosis without myelopathy or radiculopathy, cervical region | CPT/HCPCS: 99214 ==

== ENCOUNTER → 2020-09-22 08:26 | Outpatient (BNVA) | payer BC, SELFPAY | PROVIDERS: PCP Family Medicine; Visit Provider Anesthesiology Pain Medicine | DX: M47.22 Other spondylosis with radiculopathy, cervical region (principal); M47.812 Spondylosis without myelopathy or radiculopathy, cervical region; M50.90 Cervical disc disorder, unspecified, unspecified cervical region; M54.9 Dorsalgia, unspecified; M62.838 Other muscle spasm | CPT/HCPCS: 99213 ==

== ENCOUNTER 2020-12-29 07:15 | Outpatient (CLI) | payer BC, SELFPAY ==
--- NOTE | 2020-12-29 07:15 | XRR_ITS ---
PROCEDURE INFORMATION: Exam: XR Abdomen Exam date and time: 12/29/2020 7:15 AM Age: 45 years old Clinical indication: Condition or disease; Kidney or ureter condition; Calculus (stone) in kidney; Additional info: Urolithiasis TECHNIQUE: Imaging protocol: XR of the abdomen. Views: Frontal supine view of the abdomen. 1 View. Total images: 2 COMPARISON: CR XR KUB [id number] 11/13/2019 8:06 AM FINDINGS: Gastrointestinal tract: Bowel gas pattern is nondistended and nonobstructive. Organs: No renal, ureteral, nor bladder calculi detected. Bones/joints: Unremarkable. Other findings: Moderate stool burden. XR/XR KUB [id number] IMPRESSION: 1. Normal bowel gas pattern 2. Moderate stool burden. 3. No renal, ureteral, nor bladder calculi detected.
== END 2020-12-29 07:16 | disposition home or self-care (01) ==
PROVIDERS: PCP Family Medicine; Visit Provider Urology
DX: N20.9 Urinary calculus, unspecified (principal)
CPT/HCPCS: 74018; 81003

== ENCOUNTER 2024-04-09 07:35 | Emergency (ER) | payer BC, SELFPAY ==
--- NOTE | 2024-04-09 07:50 | ECG_ITS ---
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 Measurements Intervals [place] Rate: 72 P: 44 UT: 187 QRS: 24 QRSD: 84 T: 61 QT: 371 QTc: 407 Interpretive Statements SINUS RHYTHM No previous ECG available for comparison Electronically Signed On 04-10-2024 19:10:40 MOTOR VEHICLE PARTS INTERPRETER by Rafael Colon M.D. [id number]
[2024-04-09 07:53] VITALS: BP 153/99; PULSE 75; RESP 18; TEMP 36.7; O2SAT 98; BMI 30.1
[2024-04-09 08:03] VITALS: BP 128/91; PULSE 69; O2SAT 97
--- NOTE | 2024-04-09 08:05 | CTR_ITS ---
PROCEDURE INFORMATION: Exam: CT Head Without Contrast Exam date and time: 04/09/2024 8:42 AM Age: 48 years old Clinical indication: Syncope and collapse; Additional info: Near syncope, burning in neck. Vertigo x this am TECHNIQUE: Imaging protocol: Computed tomography of the head without contrast. Radiation optimization: All CT scans at this facility use at least one of these dose optimization techniques: automated exposure control; mA and/or kV adjustment per patient size (includes targeted exams where dose is matched to clinical indication); or iterative reconstruction. COMPARISON: MR head wo/w con [id number] 05/21/2019 10:28 AM RADIATION DOSE METRICS: Total DLP (mGy-cm): 1180.5 FINDINGS: Brain: Normal. No hemorrhage. Unremarkable white matter. No mass effect. Cerebral ventricles: No ventriculomegaly. Paranasal sinuses: There is complete opacification of the left maxillary antrum with thickening of its peters and mild collapse of the sinus indicating chronic disease. Mastoid air cells: Visualized mastoid air cells are well aerated. Bones: Unremarkable. No acute fracture. Soft tissues: Unremarkable. CT/CT head wo con* [id number] IMPRESSION: No acute intracranial process.
--- NOTE | 2024-04-09 08:05 | ED_ITS ---
HPI - Dizziness 2 General: Chief Complaint: Dizziness Stated Complaint: woke up dizzy, sever neck pain, about to pass out Time Seen by Provider: 04/09/24 08:01 Source: patient Mode of arrival: ambulatory Limitations: no limitations History of Present Illness: HPI Narrative: 48-year-old male with a history of chron ic neck pain states this morning has been having burning in his posterior neck he states he is also felt lightheaded he states with standing or certain movements he feels like he is going to pass out and feels lightheaded he denies any vertigo denies any focal weakness denies any severe headache. Associated symptoms: Denies chest pain, chills, headache(s), nausea or vomiting Related Data Home Medications Medication Instructions Recorded Confirmed gabapentin 300 mg capsule 300 mg PO DAILY 05/28/20 04/09/24 aspirin 81 mg tablet,delayed 81 mg PO DAILY PRN Pain 06/19/20 04/09/24 release meloxicam 15 mg tablet 15 mg PO DAILY 12/29/20 04/09/24 Previous Rx's Medication Instructions Recorded meclizine 50 mg tablet 50 mg PO BID PRN dizziness #20 tabs 04/09/24 ondansetron 4 mg disintegrating 4 mg PO Q6H PRN nausea and 04/09/24 tablet vomiting #14 tabs Allergies Allergy/AdvReac Type Severity Reaction Status Date / Time No Known Allergies Allergy Verified 09/22/20 08:35 Review of Systems 2 Const: Denies: fever(s), chills, body aches or change in appetite Eyes: Denies: blurry vision or eye discomfort ENMT: Denies: throat pain or dental pain Card: Reports: pre-syncope; Denies: chest pain Resp: Denies: dyspnea GI: Denies: abdominal pain, nausea, vomiting or diarrhea Musc: Reports: neck pain; Denies: back pain Skin/Breast: Denies: rash Neuro: Denies: headache(s) PFSH ED 2 PFSH: Medical History Hypertension Urolithiasis Multi stone former with prior ESWL in 2008 and endoscopic laser lithotripsy October 2023 8 mm right distal ureteral stone. Surgical History History of lithotripsy Family History Mother No problems noted. Father No problems noted. Social History Smoking and tobacco/nicotine status: never used tobacco/nicotine Alcohol intake: never Substance/Drug Use: never Marital status: Current occupational status: employed Physical Exam 2 Const: COMMON NORMALS: no acute distress, patient oriented x3 and healthy appearing HENMT: COMMON NORMALS: normocephalic and atraumatic HEAD & SCALP: n ormocephalic and atraumatic Eye: COMMON NORMALS: Equal, round and reactive pupils present and EOMs intact bilaterally PUPIL: Yes Equal, round and reactive pupils present OTHER: no nystagmus Neck/C-Spine: COMMON NORMALS: full ROM, supple and no meningeal signs Chest: COMMONS NORMALS: normal inspection of the chest and normal palpation of entire chest wall Resp: COMMON NORMALS: normal respiratory effort, No retractions, No use of accessory muscles and clear to auscultation bilaterally AUSCULTATION: clear to auscultation bilaterally Cardio: COMMON NORMALS: regular rate, regular rhythm and No murmurs present (Cardio) RATE: regular rate RHYTHM: regular rhythm Extremity: COMMON NORMALS: normal to inspection and full ROM Neuro: COMMON NORMALS: patient oriented x3, moves all extremities and no focal motor deficits MENINGEAL SIGNS: Yes no meningeal signs Psych: COMMON NORMALS: mental status grossly normal, Normal thought process present and cooperative THOUGHT PROCESS: Normal thought process present Skin: COMMON NORMALS: no rashes or lesions noted and no wounds GENERAL SKIN EXAM: no rashes or lesions noted Course 2 Vital Signs: Vital signs: Vital Signs Temperature 98.1 F 04/09/24 07:53 Pulse Rate 71 04/09/24 10:30 Respiratory Rate 18 04/09/24 07:53 Blood Pressure 130/86 04/09/24 10:30 Pulse Oximetry 97 04/09/24 10:30 Oxygen Delivery Me thod Room Air 04/09/24 10:30 MDM - Dizziness Medical Decision Making Patient presents here with some lightheadedness dizziness he has no dizziness at rest he is ambulated here without any difficulty no ataxia he states is really just in certain positions he gets dizzy and feels like he may pass out his head CT is normal no signs of stroke we will place him on meclizine and Zofran he is follow-up with PCP and return if worsening. Medical Records I reviewed the patient's medical records. Lab Data I reviewed the patient's lab results. 04/09/24 08:20 04/09/24 08:[address] 04/09/24 08:05 IMPRESSION: No acute intracranial process. Cervical Spine CT 04/09/24 08:36 IMPRESSION: No acute cervical fracture. Laboratory Results WBC 5.36 10^3/uL (3.29-11.43) 04/09/24 08:20 RBC 5.53 10^6/uL (3.85-5.65) 04/09/24 08:20 Hgb 16.80 g/dL (11.27-16.99) 04/09/24 08:20 Hct 47.8 % (37-53) 04/09/24 08:20 MCV 86.4 fl (82-101) 04/09/24 08:20 MCH 30.4 pg (27-33) 04/09/24 08:20 MCHC 35.1 g/dL (30-55) 04/09/24 08:20 RDW 12.7 % (12.1-15.1) 04/09/24 08:20 Plt Count 223 10^3/cmm (157-399) 04/09/24 08:20 MPV 9.6 fL (7.4-10.4) 04/09/24 08:20 Neut % (Auto) 61.3 % 04/09/24 08:20 Lymph % (Auto) 23.1 % 04/09/24 08:20 [place] % (Auto) 9.0 % 04/09/24 08:20 Eos % (Auto) 4.7 % 04/09/24 08:20 Baso % (Auto) 1.7 % 04/09/24 08:20 Neut # (Auto) 3.29 10^3/uL (1.8-7.7) 04/09/24 08:20 Lymph # (Auto) 1.2 10^3/uL (0.8-4.8) 04/09/24 08:20 [place] # (Auto) 0.5 10^3/uL (0.2-0.9) 04/09/24 08:20 Eos # (Auto) 0.3 10^3/uL (0.0-0.8) 04/09/24 08:20 Baso # (Auto) 0.1 10^3/uL (0.0-0.1) 04/09/24 08:20 Nucleated RBC % (auto) 0 % 04/09/24 08:20 Nucleated RBCs # 0.0 /100WBC 04/09/24 08:20 Sodium 139 mmol/L (136-145) 04/09/24 08:20 Potassium 4.4 mmol/L (3.5-5.1) 04/09/24 08:20 Chloride 102 mmol/L (98-107) 04/09/24 08:20 Carbon Dioxide 27 mmol/L (22-29) 04/09/24 08:20 Anion Gap 14.4 (5-19) 04/09/24 08:20 BUN 12 mg/dL (6-20) 04/09/24 08:20 Creatinine 0.9 mg/dL (0.7-1.2) 04/09/24 08:20 GFR Calculation 90.1 mL/min (90-130) 04/09/24 08:20 Glucose 136 mg/dL (65-115) H 04/09/24 08:20 Calculated Osmolality 290 mOsm/kg (285-295) 04/09/24 08:20 Calcium 9.3 mg/dL (8.5-10.5) 04/09/24 08:20 Total Bilirubin 0.4 mg/dL (0.15-1.2) 04/09/24 08:20 AST 25 U/L (0-40) 04/09/24 08:20 ALT 26 U/L (0-41) 04/09/24 08:20 Alkaline Phosphatase 61 U/L (40-130) 04/09/24 08:20 Troponin T Baseline < 6 ng/L (0-15) 04/09/24 08:20 Total Protein 7.2 g/dL (6.6-8.7) 04/09/24 08:20 Albumin 4.5 g/dL (3.5-5.2) 04/09/24 08:20 Globulin 2.7 g/dL (1.3-4.6) 04/09/24 08:20 All radiology interpretation(s) finalized by discharge EKG Data EKG 1: I personally reviewed and interpreted this EKG as follows: EKG interpretation date: 04/09/24 EKG interpretation time: 07:50 Interpretation: nsr hr [address] elevation qrs 84 qtc 395 Discharge Plan Discharge Patient Disposition: Home Clinical Impression: Dizziness, Near syncope Condition: Stable Prescriptions: New ondansetron 4 mg tablet,disintegrating 4 mg PO Q6H PRN (Reason: nausea and vomiting) Qty: 14 0RF meclizine 50 mg tablet 50 mg PO BID PRN (Reason: dizziness) Qty: 20 0RF No Action meloxicam 15 mg tablet 15 mg PO DAILY Rx Instructions: pt takes every 3 days gabapentin 300 mg capsule 300 mg PO DAILY aspirin 81 mg tablet,delayed release (DR/EC) 81 mg PO DAILY PRN (Reason: Pain) Discharge Orders: Discharge ED (Routine); Ordered 04/09/24 Ordered By: Marichuy King Referrals: Dallas Interiano MD [Primary Care Provider] - 4-7 days Discharge Diet: Advance as tolerated Discharge Activity: Resume usual activity Patient Instructions: Opioid Safety, Pain Management Coding Level of Care Code ED Driver Courier for Chg Chrissie
[2024-04-09] MEDS: ondansetron 2 mg/ML SDV 2 mL 4 MG IVP (08:22)
[2024-04-09 08:32] LABS: Basophils # 0.1 10^3/uL (0.0-0.1); Basophils % 1.7 %; Eosinophils # 0.3 10^3/uL (0.0-0.8); Eosinophils % 4.7 %; Hematocrit 47.8 % (37-53); Lymphocytes # 1.2 10^3/uL (0.8-4.8); Lymphocytes % 23.1 %; Mean Corpuscular HGB Conc 35.1 g/dL (30-55); Mean Corpuscular Hemoglobin 30.4 pg (27-33); Mean Corpuscular Volume 86.4 fl (82-101); Mean Platelet Volume 9.6 fL (7.4-10.4); Monocytes # 0.5 10^3/uL (0.2-0.9); Neutrophils # 3.29 10^3/uL (1.8-7.7); Neutrophils % 61.3 %; Nucleated Red Blood Cells % 0 %; Platelet Count 223 10^3/cmm (157-399); Red Blood Count 5.53 10^6/uL (3.85-5.65); Red Cell Distribution Width 12.7 % (12.1-15.1); White Blood Count 5.36 10^3/uL (3.29-11.43)
--- NOTE | 2024-04-09 08:36 | CTR_ITS ---
PROCEDURE INFORMATION: Exam: CT Cervical Spine Without Contrast Exam date and time: 04/09/2024 8:42 AM Age: 48 years old Clinical indication: Neck pain; Additional info: Neck pain, burning in neck, vertigo x this am TECHNIQUE: Imaging protocol: Computed tomography of the cervical spine without contrast. Radiation optimization: All CT scans at this facility use at least one of these dose optimization techniques: automated exposure control; mA and/or kV adjustment per patient size (includes targeted exams where dose is matched to clinical indication); or iterative reconstruction. COMPARISON: MR cervical spin wo con* [id number] 05/06/2020 2:13 PM RADIATION DOSE METRICS: Total DLP (mGy-cm): 1010.7 FINDINGS: Bones: There is no evidence for acute cervical fracture or subluxation. There is straightening of the normal cervical lordosis. Spondylosis is noted with disc osteophyte and uncovertebral spurring but no severe cervical canal or foraminal narrowing. Lungs: Lung apices are normal. Soft tissues: Unremarkable. CT/CT cervical spin wo con* [id number] IMPRESSION: No acute cervical fracture.
[2024-04-09 08:56] LABS: Alanine Aminotransferase 26 U/L (0-41); Albumin Level 4.5 g/dL (3.5-5.2); Alkaline Phosphatase 61 U/L (40-130); Anion Gap 14.4 (5-19); Aspartate Amino Transferase 25 U/L (0-40); Blood Urea Nitrogen 12 mg/dL (6-20); Calcium 9.3 mg/dL (8.5-10.5); Carbon Dioxide 27 mmol/L (22-29); Chloride 102 mmol/L (98-107); Creatinine Clr Calc Pharmacy 123.2902; Globulin 2.7 g/dL (1.3-4.6); Glomerular Filtration Rate 90.1 mL/min (90-130); Glucose 136 mg/dL (65-115); Osmolality Calculated 290 mOsm/kg (285-295); Potassium 4.4 mmol/L (3.5-5.1); Sodium 139 mmol/L (136-145); Total Bilirubin 0.4 mg/dL (0.15-1.2); Total Protein 7.2 g/dL (6.6-8.7)
[2024-04-09 08:57] LABS: Troponin(5th) Baseline < 6 ng/L (0-15)
[2024-04-09] MEDS: ketorolac 30 mg/mL INJ 15 MG IVP (09:26)
[2024-04-09 09:30] VITALS: BP 122/83; PULSE 66; O2SAT 96
[2024-04-09] MEDS: meclizine 25 mg tablet 50 MG PO (09:48)
[2024-04-09 10:00] VITALS: BP 141/84; PULSE 71; O2SAT 97
--- NOTE | 2024-04-09 10:05 | ECG_ITS ---
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 Measurements Intervals [place] Rate: 63 P: 39 [place]: 190 QRS: 11 QRSD: 77 T: 53 QT: 379 QTc: 388 Interpretive Statements SINUS RHYTHM Compared to ECG 04/09/2024 07:50:54 No significant changes Electronically Signed On 04-10-2024 19:39:10 PROJECT DESIGN ENGINEER by Rafael Colon M.D. [email or web address]
[2024-04-09 10:30] VITALS: BP 130/86; PULSE 71; O2SAT 97
[2024-04-09 10:44] VITALS: BP 130/88; PULSE 79; O2SAT 96
== END 2024-04-09 10:44 | disposition home or self-care (01) ==
PROVIDERS: Emergency Provider Emergency Medicine; PCP Family Medicine
DX: R42 Dizziness and giddiness (principal); R55 Syncope and collapse; Z79.82 Long term (current) use of aspirin; I10 Essential (primary) hypertension
CPT/HCPCS: 70450; 72125; 80053; 84484; 85025; 93005; 96374; 96375; 99285; J1885; J2405; J8597